=== PATIENT | female | born 1975 | race Caucasian/White ===

== ENCOUNTER 2020-02-10 09:42 | Outpatient (CLI) | payer MEDICARE, MEDICAID ==
--- NOTE | 2020-02-10 10:41 | CT ---
EXAM: CT ABDOMEN AND PELVIS: HISTORY: Left flank pain. Abdominal pain. Three rounds of antibiotics. History of urostomy and colostomy. COMPARISON: Pelvic CT 08/02/2019 and abdomen/pelvic CT 06/09/2017. Both studies performed at [facility]. Procedure: Multiple contiguous axial images were obtained and a CT of the abdomen and pelvis with IV contrast. C oronal reformats were performed. FINDINGS: Lower Chest: Stable 0.4 cm pleural-based nodule in the left lower lobe. Vessels: Normal caliber aorta. No periaortic fat stranding . Heart: Normal heart size. No significant pericardial fluid. Abdomen: Portal vein:Patent. Gallbladder: No calcified gallstones. Normal caliber wall. Liver: within normal limits. Pancreas: within normal limits. Spleen: within normal limits. Adrenals: within normal limits. Kidneys: There is enhancement of both kidneys. There is overall appropriate cortical attenuation and thickness with regards to the right kidney. There is stable scarring involving the left kidney with dilatation of the intrarenal collecting system and dilatation of the visualized left ureter. There is a nonobstructing calculus in the lower pole of the left kidney measuring 0.8 cm. There do not appear to be any calcifications or filling defects along the course of the left ureter. The anastomos is of the left ureter with a small bowel loop segment creating the urostomy is somewhat limited on this examination. No definite filling defect is appreciated. The urostomy does exit the peritoneal ca vity along the right upper quadrant. Peritoneum: No ascites or free air, no fluid collection. Bowel: Limited evaluation of the alimentary canal by the lack of oral contrast. No evidence of a smal l bowel obstruction. There is anastomosis of the small bowel in the right hemiabdomen. Ileocecal junction has a normal appearance. There is a colostomy in the left hemiabdomen. Mesentery and Retroperitoneum: No enlarged mesenteric or retroperitoneal lymph nodes. Abdominal Wall: Left colostomy and right urostomy are noted. No significant peristomal hernias. Pelvis: Reproductive Organs: Heterogeneous uterus with exophytic leiomyoma emanating from the uterine fundus, unchanged. Leiomyoma measures 2.4 x 1.8 cm. Pelvis: No mass, lymphadenopathy, free air or free fluid. Bladder: Within normal limits. Bones: Chronic changes involving the visualized osseous structures with extensive hardware. IMPRESSION: Dilatation of the left ureter and left kidney without associated obstructing calculus. There may be a caliber change at the anastomosis of the ureter with the small bowel segment. There does appear to be a left-sided urostomy. The small bowel loops starting at the anastomosis of the left ureter and te rminating at the level urostomy do not appear to have any obvious intraluminal mass. CODE T Transcribed Date/Time: 02/10/2020 11:27 AM
== END 2020-02-10 09:43 | disposition home or self-care (01) ==
LOC: CT 09:42
PROVIDERS: ATTEND Urology
DX: N99.89 Other postprocedural complications and disorders of genitourinary system (principal); N28.89 Other specified disorders of kidney and ureter
CPT/HCPCS: 74177

== ENCOUNTER 2020-02-16 11:33 | Emergency (ER) | payer MEDICARE, MEDICAID, OTHER ==
[2020-02-16 18:40] LABS: SARS-CoV-2 MS2 Positive; SARS-CoV-2 N Gene Negative; SARS-CoV-2 S Gene Negative; SARS-CoV-2 orf1ab Negative
== END 2020-02-16 13:01 | disposition home or self-care (01) ==
LOC: ERS 11:33
DX: Z53.21 Procedure and treatment not carried out due to patient leaving prior to being seen by health care provider (principal)
CPT/HCPCS: 87635; U0003

== ENCOUNTER 2020-02-17 07:16 | Day surgery (SDC) | payer MEDICARE, MEDICAID ==
[2020-02-16 16:41] VITALS: BMI 21.9
[2020-02-17] MEDS ORDERED: cefTRIAXone\\ROCEPHIN 2 GM in Sodium Chloride 0.9% 100 ML IVPB SCH (07:30)
[2020-02-17 07:37] LABS: #Eosinphils 0.3 thou/uL (0.0-0.7); #Lymphocytes 1.8 thou/uL (1.20-3.40); #Neutrophils 9.4 thou/uL (1.40-6.50); %Basophils 0.4 % (0.0-1.0); %Eosinophils 2.3 % (0.0-10.0); %Neutrophils 75.3 % (42.0-75.0); Hemoglobin 11.3 g/dL (12.0-16.0); Mean Corpuscular HGB CONC 30.4 g/dL (32.0-36.0); Mean Corpuscular Hemoglobin 25.7 pg (27.0-31.0); Mean Corpuscular Volume 84.6 fL (78.0-98.0); Mean Platelet Volume 6.7 fL (7.4-10.4); Platelet Count 436 thou/uL (130-400); RBC Distribution Width 19.2 % (11.5-14.5); White Blood Cell (WBC) Count 12.5 thou/uL (4.8-10.8)
[2020-02-17 07:54] LABS: INR-International Normal Ratio 0.9; PTT 42.6 SEC (22.9-36.1); Prothrombin Time 12.3 sec (12.0-14.7)
[2020-02-17] MEDS ORDERED: Fentanyl 100 MCG/2 ML VIAL ONE (08:30)
[2020-02-17] MEDS ORDERED: Midazolam HCl 2 mg/2 ml Vial ONE (08:30)
[2020-02-17] MEDS ORDERED: Iopamidol 300 61% 50 ML VIAL FS ONE (09:48)
[2020-02-17 12:15] VITALS: BP 112/67; TEMP 99.1
--- NOTE | 2020-02-17 13:38 | SPC ---
EXAM: SPC NEPHROURER CATH NEW ACCESS PROVIDED CLINICAL HISTORY: Patient with ileal conduit and left-sided hydronephrosis and recurrent urinary tract infections. Plac ement of left nephrostomy tube was requested. COMPARISON: CT abdomen on 02/10/2020 TECHNIQUE: The procedure including the risks and complications were explained to the patient, and informed conse nt was obtained. The patient was placed on the fluoroscopy table in the prone position. Conscious sedation was performed with the intravenous administration of Versed and fentanyl during the procedur e. The patient was monitored throughout the procedure and postprocedure. 2 g of Rocephin was administered intravenously as requested prior to the procedure. Limited sonographic evaluation of the left kidney was performed. Initial imaging did not demonstrate evidence of hydronephrosis. However, after approximately 10 to 15 minutes, reimaging was performed with evidence of mild left hydronephrosis present. Findings were discussed with Dr. Hernandez this [facility]. Given patient's clinical symptoms and recurrent urinary tract infections, placement a nephrostomy tube was requested. As a result, an area was marked and then meticulously prepped and al ped in the usual sterile fashion. The skin and subcutaneous tissues were infiltrated with buffered 1% lidocaine for local anesthesia. Utilizing concurrent real time ultrasound guidance, a posterior ca lyx inferior pole left kidney was accessed utilizing micropuncture technique. The introducer needle was exchanged over a 0.018 inch guidewire for a 5 Latvian introducer catheter. The catheter was unable to be advanced into the renal collecting system. As result, a 4 Latvian cathet er was placed, but again the catheter was unable to be advanced into the renal collecting system. The inner dilator of the catheter was able to be advanced into the collecting system and contrast was injected which did confirm placement in the renal collecting system. Attempt at replacing the catheter was again unsuccessful, and access into the collecting system was inadvertently lost. Utiliz ing concurrent real-time ultrasound guidance, the posterior calyx inferior pole left kidney was again accessed utilizing micropuncture technique. A 0.018 inch guidewire was advanced into the left u reter. The needle was exchanged over the guidewire for a 6 Latvian AccuStick sheath with stiff inner cannula and dilator. The catheter was advanced into the left ureter. The inner stylette and inner cannula were removed. Contrast injection confirms placement in the left ureter. The sheath was exchanged over a 0.035 inch Amplatz guidewire for an 8 Latvian tissue dilator followed by placement of an 8 Latvian nephrostomy tube. The distal portion of the nephrostomy tube was formed within the renal pelvis. The renal collecting system promptly decompressed after placement of the cat heter. A specimen was obtained for labs. Contrast injection of the catheter was performed which does demonstrate placement of the nephrostomy tube within the renal collecting system. The distal ure ter is also opacified with suggested severe narrowing/obstruction of the distal ureter to the level of the pelvis which is likely at site of patient's anastomosis of the distal ureter with a loop of sm all bowel. The catheter was placed to gravity drainage and sutured in place utilizing 2-0 Ethilon suture materia l. Dry sterile dressing was placed. The patient tolerated the procedure well and without immediate complication. Fluoroscopy: Time-10.7 minutes Dose-41,058 mGy centimeter squared IMPRESSION: 1. Mild right hydronephrosis and hydroureter. 2. Technically successful left 8 Latvian percutaneous nephrostomy tube placement.
== END 2020-02-17 12:00 | disposition home or self-care (01) ==
LOC: SPEC 07:16
PROVIDERS: ATTEND Urology
PROC: 0T9130Z Drainage of Left Kidney with Drainage Device, Percutaneous Approach (ICD-10-PCS; principal; 2020-02-17)
DX: N13.30 Unspecified hydronephrosis (principal); J45.909 Unspecified asthma, uncomplicated; F41.9 Anxiety disorder, unspecified; K21.9 Gastro-esophageal reflux disease without esophagitis; G89.29 Other chronic pain; G82.20 Paraplegia, unspecified; Z87.440 Personal history of urinary (tract) infections; Z79.51 Long term (current) use of inhaled steroids; Z79.899 Other long term (current) drug therapy; Z88.0 Allergy status to penicillin; Z88.5 Allergy status to narcotic agent; Z88.8 Allergy status to other drugs, medicaments and biological substances; Z93.3 Colostomy status
CPT/HCPCS: 50430; 50433; 85025; 85610; 85730; 87070; 87077; 87186; 87205; C1729; 36415; J0696; J2250; J3010; J3490

== ENCOUNTER 2020-03-16 06:33 | Outpatient (CLI) | payer MEDICARE, MEDICAID, OTHER ==
[2020-03-17 11:17] LABS: SARS-CoV-2 MS2 Positive; SARS-CoV-2 N Gene Negative; SARS-CoV-2 S Gene Negative; SARS-CoV-2 orf1ab Negative
== END 2020-03-16 06:34 | disposition home or self-care (01) ==
LOC: LABBT 06:33
PROVIDERS: ATTEND Urology
DX: Z01.818 Encounter for other preprocedural examination (principal); Z11.59 Encounter for screening for other viral diseases; N20.0 Calculus of kidney; N99.89 Other postprocedural complications and disorders of genitourinary system
CPT/HCPCS: 93005; U0003; 87635; 93010

== ENCOUNTER 2020-03-16 10:30 | Observation (INO) | payer MEDICARE, MEDICAID ==
[2020-03-16 12:03] VITALS: BMI 22.4
[2020-03-16 14:30] LABS: Hemoglobin 12.3 g/dL (12.0-16.0); Mean Corpuscular HGB CONC 31.8 g/dL (32.0-36.0); Mean Corpuscular Hemoglobin 27.3 pg (27.0-31.0); Mean Corpuscular Volume 85.6 fL (78.0-98.0); Mean Platelet Volume 7.2 fL (7.4-10.4); Platelet Count 453 thou/uL (130-400); RBC Distribution Width 19.2 % (11.5-14.5); Red Blood Cell (RBC) Count 4.52 mill/uL (4.20-5.40); White Blood Cell (WBC) Count 8.9 thou/uL (4.8-10.8)
[2020-03-16 14:45] LABS: INR-International Normal Ratio 0.9; Prothrombin Time 12.4 sec (12.0-14.7)
[2020-03-16 14:46] LABS: PTT 36.5 sec (22.9-36.1)
[2020-03-16 14:53] LABS: Anion Gap 11 mmol/L (10-20); BUN (Urea Nitrogen) 18 mg/dL (7.0-18.7); Calc. Creatinine Clearance 0 mL/min (70-130); Carbon Dioxide 20 mmol/L (22-29); Chloride 108 mmol/L (98-107); Estimated GFR-MDRD 80; Glucose 87 mg/dL (70-105); Potassium 3.4 mmol/L (3.5-5.1); Sodium 136 mmol/L (136-145)
[2020-03-21] MEDS ORDERED: Rocuronium Bromide 10 MG/ML (10ML VIAL) ONE (09:15)
[2020-03-21] MEDS ORDERED: PHENYLEPHRINE-NS 100 MCG/ML 10 ML SYRINGE ONE (09:15)
[2020-03-21] MEDS ORDERED: PROPOFOL 200 MG/20 ML VIAL ONE (09:15)
[2020-03-21] MEDS ORDERED: Dexamethasone 20 MG/5 ML VIAL ONE (09:15)
[2020-03-21] MEDS ORDERED: Ondansetron PF 4 MG/2 ML Vial ONE (09:15)
[2020-03-21] MEDS ORDERED: Lidocaine 1% PF 5 ML VIAL ONE (09:15)
[2020-03-21] MEDS ORDERED: Glycopyrrolate 0.2 MG/ML 5 ML SYRINGE ONE (09:15)
[2020-03-21] MEDS ORDERED: Gentamicin Sulfate 240 MG in Sodium Chloride 0.9% 100 ML IVPB SCH (10:00)
[2020-03-21] MEDS ORDERED: Iopamidol 50 ML FS ONE (11:57)
[2020-03-21] MEDS ORDERED: Fentanyl 100 MCG/2 ML VIAL ONE ×3 (12:07→15:15)
[2020-03-21] MEDS ORDERED: HYDROmorphone 2 MG/ML VIAL SLOW IVP PRN (12:52)
[2020-03-21] MEDS ORDERED: Promethazine HCl 25 MG/ML VIAL SLOW IVP PRN (12:52)
[2020-03-21] MEDS ORDERED: Ondansetron HCl/PF 4 MG/2 ML Vial IVP PRN (12:52)
[2020-03-21] MEDS ORDERED: PACU-Morphine 4MG/ML VIAL SLOW IVP PRN (12:52)
[2020-03-21] MEDS ORDERED: Promethazine HCl 25 MG/ML VIAL IM PRN ×2 (12:52→17:15)
[2020-03-21] MEDS ORDERED: HYDROmorphone 10 mg/100 ml CADD IVPB PRN (14:54)
--- NOTE | 2020-03-21 15:56 | OP ---
DATE OF PROCEDURE: 03/21/2020 PREOPERATIVE DIAGNOSES: 1. Left renal stone. 2. Left ureteroileal anastomotic stricture. POSTOPERATIVE DIAGNOSES: 1. Left renal stone. 2. Left ureteroileal anastomotic stricture. PROCEDURES PERFORMED: 1. Dilation of nephrostomy tract for percutaneous access for endourological procedure. 2. Left percutaneous nephrolithotomy. 3. Left antegrade ureteroscopy with laser of ureteroileal anastomotic stricture. 4. Antegrade nephrostogram. 5. Antegrade ureteral stent placement. ANESTHESIA: General. COMPLICATIONS: None. BLOOD LOSS: 100 mL. SPECIMENS: None. DESCRIPTION OF PROCEDURE: After informed consent, the patient was taken to the operating room. Anesthesia was established on her stretcher. She was then transferred to the table onto the prone position, taking care to pad all pressure points. A time-out was performed, showing the correct patient, site, and procedure. Preoperative antibiotics were administered. She was then prepped and draped. I began by performing an antegrade nephrostogram, showing good filling of the renal pelvis with a tip of the nephrostomy tube in the mid to lower pole calyx. I was able to then negotiate a hydrophilic wire through the nephrostomy tube and into the renal pelvis before guiding it into the ureter. A dual-lumen access sheath was then passed over this into the renal pelvis and into the proximal ureter. The wire was then exchanged for an Amplatz and a Sensor wire through the dual-lumen sheath. This was then removed and a 1-cm skin incision was made. The balloon dilator was positioned with the tip of the balloon in the renal pelvis and inflated. This was left for about 30 seconds before passing the access sheath over this. The balloon was then deflated and removed. The nephroscope was passed into the renal pelvis, removing blood clots and the stone seen on CT scan. I then switched to the flexible nephroscope and was able to guide this down the ureter towards the anastomotic stricture. This was identified and a 365 micron laser fiber used to incise this in 3 spots around 12 o'clock, 4 o'clock, 8 o'clock. The scope was then able to pass through this easily into the conduit. I was able to visually confirm that both wires were in good position in the conduit. The flexible nephroscope was then backed into the renal pelvis, which was systematically examined, noting no further blood clots or stones. That scope was then withdrawn and I switched back to the rigid nephroscope, which I used to place a 7 x 28 double-J ureteral stent across the anastomosis with a curl in the renal pelvis and a curl in the conduit. I then removed the scope and access sheath before removing the safety wire. The incision site was closed in a vertical mattress fashion with 2-0 Vicryl suture. This was dressed with gauze. The patient was then awoken from anesthesia, transferred back to her hospital bed, and taken to PACU in stable condition, where she will be admitted overnight for observation. Job ID: [id number]
[2020-03-21] MEDS ORDERED: diphenhydrAMINE 25 MG CAP PO PRN (17:15)
[2020-03-21] MEDS ORDERED: Communication Order-Pharmacy FS SCH (17:15)
[2020-03-21] MEDS ORDERED: Naloxone HCl 0.4 mg/ml Vial IV PRN (17:15)
[2020-03-21] MEDS ORDERED: diphenhydrAMINE 50 MG/ML VIAL IM PRN (17:15)
[2020-03-21] MEDS ORDERED: Acetaminophen 500 MG TAB PO PRN (17:15)
[2020-03-21] MEDS ORDERED: Ondansetron PF 4 MG/2 ML Vial IVP PRN (17:15)
[2020-03-21] MEDS ORDERED: diphenhydrAMINE 50 MG/ML VIAL IVP PRN (17:15)
[2020-03-21] MEDS: Sodium Chloride 0.9% 1,000 ML IV SCH (17:53)
[2020-03-21] MEDS: Ketorolac Tromethamine 30 MG/ML VIAL IVP SCH (17:54)
[2020-03-21] MEDS: ceFAZolin 1 GM/D5W 1 GM in Premix Bag 1 BAG IVPB SCH (17:57)
[2020-03-21] MEDS: fentaNYL 50 mcg/hour Patch TD SCH (18:00)
[2020-03-21] MEDS: Mometasone 200 MCG/Formoterol 5 MCG 120 PUFF INHALER INH SCH (18:55)
[2020-03-21] MEDS: Docusate 100 MG CAP PO SCH (20:59)
[2020-03-21] MEDS: Topiramate 25 MG TAB PO SCH (20:59)
[2020-03-21] MEDS: Famotidine/PF 20 mg/2ml Vial SLOW IVP SCH (20:59)
[2020-03-21] MEDS ORDERED: traZODone HCl 50 MG TAB PO SCH (21:00)
[2020-03-21] MEDS ORDERED: Baclofen 10 MG TAB PO SCH (21:00)
[2020-03-21] MEDS ORDERED: Eszopiclone [Lunesta] 3 MG PO SCH (21:00)
[2020-03-22] MEDS: Ketorolac Tromethamine 30 MG/ML VIAL IVP SCH ×2 (00:24→05:47)
[2020-03-22] MEDS: ceFAZolin 1 GM/D5W 1 GM in Premix Bag 1 BAG IVPB SCH ×2 (02:03→10:17)
[2020-03-22] MEDS: Sodium Chloride 0.9% 1,000 ML IV SCH (05:52)
[2020-03-22 06:13] LABS: #Eosinphils 0.1 thou/uL (0.0-0.7); #Lymphocytes 2.1 thou/uL (1.20-3.40); #Monocytes 1.1 thou/uL (0.11-0.59); #Neutrophils 15.1 thou/uL (1.40-6.50); %Basophils 0.2 % (0.0-1.0); %Eosinophils 0.3 % (0.0-10.0); %Lymphocytes 11.4 % (21.0-51.0); %Monocytes 6.2 % (0.0-10.0); %Neutrophils 81.9 % (42.0-75.0); Hemoglobin 10.7 g/dL (12.0-16.0); Mean Corpuscular HGB CONC 31.3 g/dL (32.0-36.0); Mean Corpuscular Hemoglobin 26.6 pg (27.0-31.0); Mean Corpuscular Volume 85.1 fL (78.0-98.0); Mean Platelet Volume 7.1 fL (7.4-10.4); Platelet Count 409 thou/uL (130-400); RBC Distribution Width 18.4 % (11.5-14.5); Red Blood Cell (RBC) Count 4.04 mill/uL (4.20-5.40); White Blood Cell (WBC) Count 18.4 thou/uL (4.8-10.8)
[2020-03-22 06:33] LABS: Anion Gap 10 mmol/L (10-20); BUN (Urea Nitrogen) 19 mg/dL (7.0-18.7); Calc. Creatinine Clearance 72 mL/min (70-130); Calcium 8.2 mg/dL (7.8-10.44); Carbon Dioxide 19 mmol/L (22-29); Chloride 113 mmol/L (98-107); Estimated GFR-MDRD 65; Glucose 105 mg/dL (70-105); Potassium 3.6 mmol/L (3.5-5.1); Sodium 138 mmol/L (136-145)
[2020-03-22] MEDS: Mometasone 200 MCG/Formoterol 5 MCG 120 PUFF INHALER INH SCH (06:37)
[2020-03-22 07:38] VITALS: TEMP 97.9
[2020-03-22] MEDS: Docusate 100 MG CAP PO SCH (10:16)
[2020-03-22] MEDS: Topiramate 25 MG TAB PO SCH (10:16)
[2020-03-22] MEDS: Famotidine/PF 20 mg/2ml Vial SLOW IVP SCH (10:16)
[2020-03-22 11:18] VITALS: BP 100/65
[2020-03-22] MEDS: fentaNYL 50 mcg/hour Patch TD SCH (11:24)
--- NOTE | 2020-03-23 12:01 | DIS ---
DATE OF ADMISSION: 03/21/2020 DATE OF DISCHARGE: 03/22/2020 CHIEF COMPLAINT: Left back pain. HOSPITAL COURSE: This is a 44-year-old female, with a history of simple cystectomy for neurogenic bladder secondary to quadriplegia. She has developed a left ureteroileal anastomotic stricture and has previously had a PCN placed. She was taken to the operating room on March 21 for left percutaneous nephrolithotomy for a renal stone and antegrade ureteroscopy with laser of ureteroileal anastomotic stricture and stent placement. There were no surgical complications. She did well overnight and the following morning was having only minimal left back pain at the incision site. Vitals were stable overnight. PHYSICAL EXAMINATION: On the morning of postop day 1, left flank dressing in place, urine clear. ABDOMEN: Soft. LUNGS: Unlabored breathing. Symmetric chest expansion. HEART: Regular rate and rhythm. DISCHARGE DIAGNOSES: Chronic pain, quadriplegia, history of cystectomy, history of colostomy, ureteroileal anastomotic stricture, and kidney stone. DISCHARGE MEDICATIONS: Continue home medications with the addition of [place] and doxycycline. FOLLOWUP PLAN: Two weeks for stent removal. Job ID: [id number]
--- NOTE | 2020-03-23 16:23 | RAD ---
RETROGRADE PYELOGRAM: 03/23/20 Two images. INDICATIONS: Intraoperative imaging during retrograde procedure. FINDINGS/IMPRESSION: Two fluoroscopic images are presented from OR. These are suboptimally positioned. The initial images shows wire and catheters which appear to overlie the bladder. The upper collecting structures are not imaged. Hardware is seen in the lumbar spine. The final image shows a pigtail catheter which appears to be a right ureteral stent with pigtail presumed within the bladder. There is also a wire within t he right ureter coiled within the bladder adjacent to this stent. POS: AGW
--- NOTE | 2020-03-31 05:49 | PQF ---
[facility] POST DISCHARGE CLINICAL DOCUMENTATION IMPROVEMENT CLARIFICATION FORM l Todays Date: 03/31/20 l Patients Name KANWAL BRAXTON l l Admit Date 03/21/20 l Disch Date 03/22/20 Tire Service Technician Name Cali Malcolm Email: [email or web address] [phone] To be completed by Tire Service Technician: Present Clinical Indicators - Signs / Symptoms Results and Location in Medical Record [ ] Documentation of: [ ] [ ] Documentation of: [ ] [ ] Documentation of: [ ] [ ] Documentation of: [ ] [ ] Risks [ ] [ ] [ ] Treatment [ ] Kidney calculus Query for size (cm) of kidney stone [ ] [ ] To be completed by Physician: ANNA CABELLO The documentation in this patients record requires clarification to ensure coding compliance and accuracy. Check the appropriate box and include in your discharge summary. [ ] 5-7mm, soft stone [ ] [ ] [ ] Please check this box if this does not apply to this patient [ ] Unable to determine [ ] Other diagnosis: Review the following information and exercise your independent professional judgment in responding to the clarification. Based upon the clinical findings, risk factors, and treatment, please clarify if you are treating one of the above probable or suspected diagnoses. Physician Signature: Date Time MTDD
== END 2020-03-22 12:38 | disposition home or self-care (01) ==
LOC: EDSTATUS 10:30 → SURG A 03-21 08:30 → INTOOBSV 03-21 08:30 → SURG A 03-21 17:08
PROVIDERS: ADMIT Urology; ATTEND Urology
PROC: 0TC13ZZ Extirpation of Matter from Left Kidney, Percutaneous Approach (ICD-10-PCS; principal; 2020-03-21)
PROC: 0T773DZ Dilation of Left Ureter with Intraluminal Device, Percutaneous Approach (ICD-10-PCS; 2020-03-21)
DX: N20.0 Calculus of kidney (principal); N99.89 Other postprocedural complications and disorders of genitourinary system; G82.50 Quadriplegia, unspecified; G89.29 Other chronic pain; J45.909 Unspecified asthma, uncomplicated; K21.9 Gastro-esophageal reflux disease without esophagitis; F98.8 Other specified behavioral and emotional disorders with onset usually occurring in childhood and adolescence; G40.909 Epilepsy, unspecified, not intractable, without status epilepticus; M19.90 Unspecified osteoarthritis, unspecified site; F32.9 Major depressive disorder, single episode, unspecified; F41.9 Anxiety disorder, unspecified; Z79.899 Other long term (current) drug therapy; Z88.0 Allergy status to penicillin; Z88.5 Allergy status to narcotic agent; Z88.8 Allergy status to other drugs, medicaments and biological substances; Z98.1 Arthrodesis status; Z90.6 Acquired absence of other parts of urinary tract; Z93.3 Colostomy status
CPT/HCPCS: 50080; 50953; 74420; 76000; 80048 ×2; 85025; 85027; 85610; 85730; 86850; 86900; 86901; 94640 ×2; 96361 ×2; 96374; 96375; 96376; G0378 ×2; 36415; J0690; J1100; J1885; J2001; J2405; J2704; J3010; Q9967; S0028

== ENCOUNTER 2020-05-04 09:01 | Day surgery (SDC) | payer MEDICARE, MEDICAID ==
[2020-05-04] MEDS ORDERED: Ertapenem 1 GM in Sodium Chloride 0.9% 100 ML IVPB SCH (10:00)
[2020-05-04] MEDS ORDERED: DAPTOmycin 400 MG in Sodium Chloride 0.9% 8 ML IVPB SCH (10:00)
--- NOTE | 2020-05-04 11:30 | SPC ---
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 Vein accessed:left basilic Total fluoroscopy time: 0.4 min. Dose area product: 465 mGy*cm^2 Signed, informed consent was obtained. A tourniquet was applied at the proximal aspect of the arm. Th e arm was prepped and draped in the usual sterile fashion. A 25-gauge needle was used to applied buffered lidocaine superficially. The vein was punctured with a 21-gauge micropuncture needle under u ltrasound guidance. A 0.018 inch guidewire was advanced through the micropuncture needle and into the vein. Under fluoroscopic guidance, the guidewire was advanced to the superior vena cava. The PICC was flushed and trimmed to the appropriate length. The micropuncture needle was exchanged over the guidewire for a 5 Eritrean peel-away dilator sheath. The dilator was exchanged over the guidewire for t he PICC, which was then further advanced under fluoroscopy. The sheath and guidewire were removed. The PICC was flushed again and secured in place at the arm after adjustment of tip position. The shea ent tolerated the procedure well. There was no complication. IMPRESSION: Successful placement of PICC (peripherally inserted central catheter).
== END 2020-05-04 12:05 | disposition home or self-care (01) ==
LOC: SPEC 09:01 → ONC/OP 12:05
PROVIDERS: ATTEND Internal Medicine Infectious Disease
PROC: 02HV33Z Insertion of Infusion Device into Superior Vena Cava, Percutaneous Approach (ICD-10-PCS; principal; 2020-05-04)
PROC: B548ZZA Ultrasonography of Superior Vena Cava, Guidance (ICD-10-PCS; 2020-05-04)
DX: M46.20 Osteomyelitis of vertebra, site unspecified (principal); Z88.0 Allergy status to penicillin; Z88.5 Allergy status to narcotic agent; Z88.8 Allergy status to other drugs, medicaments and biological substances
CPT/HCPCS: 36569; 96365; 96375; J0878; J1335; J3490

== ENCOUNTER 2020-05-10 22:19 | Emergency (ER) | payer MEDICARE, OTHER ==
[2020-05-10] MEDS ORDERED: Lorazepam 2 MG/ML VIAL ONE (22:23)
[2020-05-11 00:44] LABS: #Eosinphils 0.2 thou/uL (0.0-0.7); #Lymphocytes 1.3 thou/uL (1.20-3.40); #Monocytes 0.7 thou/uL (0.11-0.59); %Basophils 0.3 % (0.0-1.0); %Eosinophils 1.6 % (0.0-10.0); %Lymphocytes 9.9 % (21.0-51.0); %Monocytes 5.1 % (0.0-10.0); %Neutrophils 83.1 % (42.0-75.0); Mean Corpuscular HGB CONC 31.6 g/dL (32.0-36.0); Mean Corpuscular Hemoglobin 27.4 pg (27.0-31.0); Mean Corpuscular Volume 86.6 fL (78.0-98.0); Mean Platelet Volume 7.3 fL (7.4-10.4); Platelet Count 300 thou/uL (130-400); RBC Distribution Width 17.7 % (11.5-14.5); Red Blood Cell (RBC) Count 4.38 mill/uL (4.20-5.40); White Blood Cell (WBC) Count 13.2 thou/uL (4.8-10.8)
[2020-05-11 01:00] LABS: ALT (SGPT) 13 U/L (8-55); AST (SGOT) 24 U/L (5-34); Albumin 3.4 g/dL (3.5-5.0); Alkaline Phosphatase 88 U/L (40-110); Anion Gap 14 mmol/L (10-20); BUN (Urea Nitrogen) 20 mg/dL (7.0-18.7); Bilirubin, Total Less than 0.2 mg/dL (0.2-1.2); Calc. Creatinine Clearance 0 mL/min (70-130); Calcium 9.1 mg/dL (7.8-10.44); Carbon Dioxide 24 mmol/L (22-29); Chloride 104 mmol/L (98-107); Estimated GFR-MDRD 81; Globulin 3.4 g/dL (2.4-3.5); Glucose 127 mg/dL (70-105); Potassium 4.5 mmol/L (3.5-5.1); Protein, Total 6.8 g/dL (6.0-8.3); Sodium 137 mmol/L (136-145)
--- NOTE | 2020-05-11 07:39 | CT ---
PRELIMINARY REPORT/[facility]/EMERGENCY AFTER HOURS PROCEDURE: EXAM: CT Head Without Intravenous Contrast. CLINICAL HISTORY: 44yoF presents to the ED s/p witness seizures x 2. She has a known seizure disorder and takes Topomax daily. Her last seizure was in 2010. 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 TECHNIQUE: Axial computed tomography images of the head/brain without intravenous contrast. COMPARISON: CT\SR - CT BRAIN WO CON - 01/06/2009 09:06 PM CDT FINDINGS: BRAIN: No acute intraparenchymal hemorrhage. No mass lesion. No CT evidence for acute territorial infarct. N o midline shift or extra-axial collection. VENTRICLES: No hydrocephalus. ORBITS: The orbits are unremarkable. SINUSES AND MASTOIDS: The paranasal sinuses and mastoid air cells are clear. SOFT TISSUES: No significant facial or scalp soft tissue swelling evident. No radiopaque foreign body is seen. BONES: No acute skull fracture. IMPRESSION: No acute intracranial abnormality. ELECTRONICALLY SIGNED BY: Ermias Rubin DO May 11, 2020 12:16:29 AM CDT This report is intended for review by the ordering physician only, in accordance of law. If you recei ve this report in error, please call [facility] at [phone]. FINAL REPORT EMERGENCY AFTER HOURS CT BRAIN WITHOUT CONTRAST: COMPARISON: 01/06/2009. FINDINGS/IMPRESSION: I agree with the findings and impression given in the preliminary report per [facility] physici an. No evidence of acute intracranial abnormality. POS: GONSALO
== END 2020-05-11 01:28 | disposition home or self-care (01) ==
LOC: ERS 22:19
DX: G40.909 Epilepsy, unspecified, not intractable, without status epilepticus (principal); J45.909 Unspecified asthma, uncomplicated; Z79.899 Other long term (current) drug therapy
CPT/HCPCS: 36415; 70450; 80053; 82550; 85025; 85652; 86140; 96374; J2060

== ENCOUNTER 2020-11-22 12:52 | Outpatient (CLI) | payer MEDICARE, MEDICAID ==
[2020-11-22] MEDS ORDERED: Magnevist 469MG/ML 20 ML VIAL ONE (14:49)
== END 2020-11-22 12:53 | disposition home or self-care (01) ==
LOC: MRI 12:52
PROVIDERS: ATTEND Nurse Practitioner Family
DX: M48.9 Spondylopathy, unspecified (principal); R93.7 Abnormal findings on diagnostic imaging of other parts of musculoskeletal system
CPT/HCPCS: 72157; A9579

== ENCOUNTER 2021-11-30 11:19 | Outpatient (CLI) | payer MEDICARE, MEDICAID | END 2021-11-30 11:20 | disposition home or self-care (01) | LOC: CT 11:19 | PROVIDERS: ATTEND Urology | DX: N13.2 Hydronephrosis with renal and ureteral calculous obstruction (principal); K80.20 Calculus of gallbladder without cholecystitis without obstruction; L89.159 Pressure ulcer of sacral region, unspecified stage | CPT/HCPCS: 74176 ==

== ENCOUNTER 2022-02-05 11:55 | Outpatient (CLI) | payer OTHER, MEDICAID ==
[2022-02-05 21:14] LABS: SARS-CoV-2 PCR by NAA Not Detected (NotDetected)
== END 2022-02-05 11:56 | disposition home or self-care (01) ==
LOC: LABBT 11:55
PROVIDERS: ATTEND Urology
DX: N35.92 Unspecified urethral stricture, female (principal); Z20.822 Contact with and (suspected) exposure to COVID-19
CPT/HCPCS: U0003; U0005

== ENCOUNTER 2022-02-13 14:14 | Outpatient (CLI) | payer OTHER, MEDICAID ==
[2022-02-14 00:30] LABS: SARS-CoV-2 PCR by NAA Not Detected (NotDetected)
== END 2022-02-13 14:15 | disposition home or self-care (01) ==
LOC: LABBT 14:14
PROVIDERS: ATTEND Urology
DX: N35.92 Unspecified urethral stricture, female (principal); Z20.822 Contact with and (suspected) exposure to COVID-19
CPT/HCPCS: U0003; U0005

== ENCOUNTER 2022-02-15 07:01 | Day surgery (SDC) | payer OTHER, MEDICAID ==
[2022-02-14 13:16] VITALS: BMI 23.1
[2022-02-15] MEDS ORDERED: Ioversol 68 % 50 ML VIAL ONE (08:10)
== END 2022-02-15 10:52 | disposition home or self-care (01) ==
LOC: SDC 07:01
PROVIDERS: ATTEND Urology
PROC: 0TJB8ZZ Inspection of Bladder, Via Natural or Artificial Opening Endoscopic (ICD-10-PCS; principal; 2022-02-15)
DX: N99.89 Other postprocedural complications and disorders of genitourinary system (principal); Z79.899 Other long term (current) drug therapy; Z88.0 Allergy status to penicillin; Z88.5 Allergy status to narcotic agent; Z88.8 Allergy status to other drugs, medicaments and biological substances; Z91.018 Allergy to other foods; Z90.6 Acquired absence of other parts of urinary tract; Z98.1 Arthrodesis status
CPT/HCPCS: 74420; 87086; Q9967

== ENCOUNTER 2022-03-25 13:11 | Inpatient (IN) | payer MEDICARE, OTHER ==
[2022-03-25 13:41] VITALS: BMI 24.9
[2022-03-25] MEDS ORDERED: Acetaminophen 650 MG Suppository PR PRN (14:37)
[2022-03-25] MEDS: Cefepime 2 GM in Sodium Chloride 0.9% 100 ML IVPB SCH (15:59)
[2022-03-25] MEDS: Mometasone 200 MCG/Formoterol 5 MCG 120 PUFF INHALER INH SCH (19:00)
[2022-03-25] MEDS: Promethazine HCl 25 MG in Sodium Chloride 0.9% 50 ML IVPB PRN (22:00)
[2022-03-25] MEDS: Ketorolac Tromethamine 30 MG/ML VIAL IVP PRN (22:00)
[2022-03-26] MEDS: Promethazine HCl 25 MG in Sodium Chloride 0.9% 50 ML IVPB PRN ×2 (03:57→14:21)
[2022-03-26] MEDS: Ketorolac Tromethamine 30 MG/ML VIAL IVP PRN ×3 (03:57→18:16)
[2022-03-26] MEDS: Cefepime 2 GM in Sodium Chloride 0.9% 100 ML IVPB SCH ×2 (03:57→14:54)
[2022-03-26] MEDS: Mometasone 200 MCG/Formoterol 5 MCG 120 PUFF INHALER INH SCH ×2 (08:00→19:30)
[2022-03-26] MEDS: Enoxaparin Sodium 40 MG/0.4 ML SYRINGE SC SCH (10:13)
[2022-03-27] MEDS: Cefepime 2 GM in Sodium Chloride 0.9% 100 ML IVPB SCH ×2 (04:20→15:03)
[2022-03-27] MEDS: Mometasone 200 MCG/Formoterol 5 MCG 120 PUFF INHALER INH SCH (07:18)
[2022-03-27 08:11] VITALS: BP 116/77; TEMP 98.2
[2022-03-27] MEDS: Enoxaparin Sodium 40 MG/0.4 ML SYRINGE SC SCH (08:29)
[2022-03-27] MEDS: HYDROcodone/Acetaminophen 10/325 mg Tablet PO PRN ×2 (08:29→15:03)
[2022-03-27] MEDS ORDERED: Loperamide HCl 2 MG CAP PO PRN (09:13)
[2022-03-27] MEDS ORDERED: Ondansetron ODT 4 MG TAB PO PRN (09:13)
[2022-03-27] MEDS ORDERED: Moisturizing Cream (Eucerin) 113 GM JAR TOP PRN (09:13)
[2022-03-27] MEDS ORDERED: Loratadine 10 MG TAB PO PRN (09:13)
[2022-03-27] MEDS ORDERED: Ondansetron PF 4 MG/2 ML Vial IVP PRN (09:13)
[2022-03-27] MEDS ORDERED: hydrALAZINE 20 MG/ML VIAL SLOW IVP PRN (09:13)
[2022-03-27] MEDS ORDERED: Cepastat Lozenges 1 LOZ PO PRN (09:13)
[2022-03-27] MEDS ORDERED: Senokot S 8.6-50 MG TAB PO PRN (09:13)
[2022-03-27] MEDS ORDERED: Artificial Tear Sol 15 ML BOT EA EYE PRN (09:13)
[2022-03-27] MEDS ORDERED: GUAIFENESIN SF SOLN 200 MG/10 ML UDCUP PO PRN (09:13)
[2022-03-27] MEDS ORDERED: Senokot 8.6 MG TAB PO SCH ×2 (21:00)
[2022-03-27] MEDS ORDERED: Non-Formulary Item 1 EACH (Topiramate [Topiramate] 50 MG Tablet) PO SCH (21:00)
[2022-03-27] MEDS ORDERED: Topiramate 25 MG TAB PO SCH (21:00)
[2022-03-28] MEDS ORDERED: Ferrous Sulfate 325 MG TAB PO SCH (09:00)
[2022-03-28] MEDS ORDERED: Montelukast Sodium 10 mg Tablet PO SCH (09:00)
== END 2022-03-27 16:57 | disposition home or self-care (01) | DRG 689 ==
LOC: T4-A 13:11
PROVIDERS: ADMIT Internal Medicine; ATTEND Internal Medicine
DX: N39.0 Urinary tract infection, site not specified (principal); G93.41 Metabolic encephalopathy; G82.20 Paraplegia, unspecified; K56.7 Ileus, unspecified; J45.909 Unspecified asthma, uncomplicated; G40.909 Epilepsy, unspecified, not intractable, without status epilepticus; K21.9 Gastro-esophageal reflux disease without esophagitis; F41.9 Anxiety disorder, unspecified; F32.A Depression, unspecified; N31.9 Neuromuscular dysfunction of bladder, unspecified; Z93.3 Colostomy status; Z88.5 Allergy status to narcotic agent; Z88.0 Allergy status to penicillin; Z88.8 Allergy status to other drugs, medicaments and biological substances; Z91.018 Allergy to other foods; Z79.899 Other long term (current) drug therapy; Z79.51 Long term (current) use of inhaled steroids; Z98.890 Other specified postprocedural states; Z86.711 Personal history of pulmonary embolism; Z86.718 Personal history of other venous thrombosis and embolism
CPT/HCPCS: 87077; 87086; 87186; J0692; J1650; J1885; J1956; J2550; J3490

== ENCOUNTER 2023-09-17 12:22 | Outpatient (CLI) | payer OTHER | END 2023-09-17 12:23 | disposition home or self-care (01) | LOC: RAD 12:22 | PROVIDERS: ATTEND Orthopaedic Surgery | DX: M01.X51 Direct infection of right hip in infectious and parasitic diseases classified elsewhere (principal); Z98.890 Other specified postprocedural states | CPT/HCPCS: 20610; 77002 ==

== ENCOUNTER 2023-09-19 07:20 | Outpatient (CLI) | payer OTHER | END 2023-09-19 07:21 | disposition home or self-care (01) | LOC: NM 07:20 | PROVIDERS: ATTEND Orthopaedic Surgery | DX: M01.X51 Direct infection of right hip in infectious and parasitic diseases classified elsewhere (principal); M86.151 Other acute osteomyelitis, right femur; M86.18 Other acute osteomyelitis, other site | CPT/HCPCS: 78315; A9503 ==

== ENCOUNTER 2024-03-03 21:41 | Inpatient (IN) | payer OTHER ==
[2024-03-03 23:42] VITALS: BMI 24.9
[2024-03-04] MEDS ORDERED: Ondansetron PF 4 MG/2 ML Vial IVP PRN (01:10)
[2024-03-04] MEDS: Morphine 2 MG/ML VIAL SLOW IVP PRN (01:26)
[2024-03-04] MEDS: Clindamycin/D5W 600 MG in Premix 1 BAG IVPB SCH (02:00)
[2024-03-04 05:35] LABS: #Basophils 0.03 10x3/uL (0.0-0.2); %Basophils 0.3 % (0.0-1.0); %Eosinophils 5.9 % (0.0-10.0); %Lymphocytes 24.1 % (21.0-51.0); %Monocytes 8.6 % (0.0-10.0); %Neutrophils 60.4 % (42.0-75.0); Hematocrit 27.4 % (36.0-47.0); Mean Corpuscular HGB CONC 29.2 g/dL (32.0-36.0); Mean Corpuscular Hemoglobin 20.8 pg (27.0-31.0); Mean Corpuscular Volume 71.2 fL (78.0-98.0); Mean Platelet Volume 8.7 fL (7.4-10.4); Platelet Count 417 10x3/uL (130-400); RBC Distribution Width 19.6 % (11.5-14.5); Red Blood Cell (RBC) Count 3.85 mill/uL (4.20-5.40)
[2024-03-04 06:12] LABS: Vancomycin, Random 13.7 ug/mL (See Comment)
[2024-03-04 06:18] LABS: Anion Gap 11 mmol/L (10-20); BUN (Urea Nitrogen) 14 mg/dL (7.0-18.7); Calc. Creatinine Clearance 94 mL/min (70-130); Calcium 8.7 mg/dL (7.8-10.44); Carbon Dioxide 18 mmol/L (22-29); Chloride 111 mmol/L (98-107); Estimated GFR 97; Glucose 107 mg/dL (70-105); Potassium 3.8 mmol/L (3.5-5.1); Sodium 136 mmol/L (136-145)
[2024-03-04] MEDS: Vancomycin 1 GM in Premix 1 BAG IVPB SCH (06:20)
[2024-03-04 06:32] LABS: Anisocytosis SLIGHT = 6-15 cells HPF (0-5); Hypochromia SLIGHT = 6-15 cells HPF (0-5); Microcytosis SLIGHT = 6-15 cells HPF (0-5); Platelet Adequacy Comment Platelets Normal; Polychromasia SLIGHT = 2-3 cells HPF (0-2)
[2024-03-04] MEDS ORDERED: traMADol HCl 50 MG TAB PO PRN (07:02)
[2024-03-04] MEDS ORDERED: Acetaminophen 325 MG TAB PO SCH (08:00)
[2024-03-04] MEDS: Senokot S 8.6-50 MG TAB PO SCH (08:54)
[2024-03-04] MEDS: Escitalopram Oxalate 20 mg Tablet PO SCH (08:54)
[2024-03-04] MEDS: Pantoprazole DR 40 MG TAB PO SCH (08:54)
[2024-03-04] MEDS: Topiramate 25 MG TAB PO SCH (08:55)
[2024-03-04] MEDS: Polyethylene Glycol 3350 17 GM Packet PO SCH (08:55)
[2024-03-04] MEDS: Montelukast Sodium 10 mg Tablet PO SCH (08:55)
[2024-03-04] MEDS: lamoTRIgine 100 MG TAB PO SCH (08:55)
[2024-03-04] MEDS: Lactulose 20 GM (30 mL) UDCUP PO SCH (08:56)
[2024-03-04] MEDS ORDERED: Non-Formulary Item 1 EACH (Budesonide-Formoterol [Symbicort 160-4.5] 160 MG/4.5 MG Aer) INH SCH (09:00)
[2024-03-04] MEDS ORDERED: Non-Formulary Item 1 EACH (Topiramate [Topiramate] 50 MG Tablet) PO SCH (09:00)
[2024-03-04] MEDS ORDERED: traMADol HCl 50 MG TAB PO SCH (12:00)
[2024-03-04] MEDS: Acetaminophen 325 MG TAB PO SCH (12:15)
[2024-03-04] MEDS: oxyCODONE 5 MG TAB PO PRN (12:16)
[2024-03-04] MEDS: Cyclobenzaprine 10 MG TAB PO PRN (14:02)
[2024-03-04 15:19] VITALS: BMI 24.9
[2024-03-04] MEDS: Mometasone 200 MCG/Formoterol 5 MCG 120 PUFF INHALER INH SCH (18:41)
[2024-03-04] MEDS ORDERED: Vancomycin HCl 750 MG in Sodium Chloride 0.9% 250 ML 250 ML IVPB SCH (20:00)
[2024-03-04] MEDS: traZODone HCl 50 MG TAB PO SCH (20:48)
[2024-03-04] MEDS ORDERED: Non-Formulary Item 1 EACH (Trazodone Hcl [Trazodone Hcl] 100 MG Tablet) PO SCH (21:00)
[2024-03-05 05:40] LABS: Vancomycin, Random 12.2 ug/mL (See Comment)
[2024-03-05] MEDS: Enoxaparin 40 MG (0.4 mL) SYRINGE SC SCH (08:45)
[2024-03-05] MEDS: Baclofen 10 MG TAB PO SCH (14:09)
[2024-03-05] MEDS: oxyCODONE 5 MG TAB PO PRN (14:58)
[2024-03-06] MEDS: Pregabalin 50 MG CAP PO SCH (09:28)
[2024-03-06 15:25] VITALS: BP 137/81; TEMP 98
== END 2024-03-06 15:52 | disposition home or self-care (01) | DRG 562 ==
LOC: SURG A 23:02
PROVIDERS: ADMIT Surgery; ATTEND Surgery
DX: S82.302A Unspecified fracture of lower end of left tibia, initial encounter for closed fracture (principal); L89.894 Pressure ulcer of other site, stage 4; G82.20 Paraplegia, unspecified; M86.652 Other chronic osteomyelitis, left thigh; M86.651 Other chronic osteomyelitis, right thigh; S82.832A Other fracture of upper and lower end of left fibula, initial encounter for closed fracture; W18.30XA Fall on same level, unspecified, initial encounter; Z98.51 Tubal ligation status; Z98.890 Other specified postprocedural states; Z88.0 Allergy status to penicillin; Z88.1 Allergy status to other antibiotic agents; Z79.899 Other long term (current) drug therapy
CPT/HCPCS: 36415; 80048; 80202; 85025; 97139; J1650; J2272; J3370-JW; J3490